=== PATIENT | female | born 1970 | race Two or more races ===

== ENCOUNTER 2020-01-04 09:18 | Inpatient (IN) | payer MEDICAID, OTHER ==
[~2020-01-04] VITALS: Ht 162.6 cm; Wt 94.0 kg
[2020-01-04 10:19] LABS: Basophils # (auto) 0 10 ^3/uL (0-0.2); Basophils % (auto) 0.3 % (0.0-2.0); Eosinophils # (auto) 0 10 ^3/uL (0-0.8); Eosinophils % (auto) 0.3 % (0.0-7.0); Hematocrit 46.8 % (36.0-46.0); Lymphocytes % (auto) 11.8 % (10.0-50.0); Mean Corpuscular Hemoglobin 28.1 pg (28.0-32.0); Mean Corpuscular Hgb Conc. 34.2 g/dL (32.0-36.0); Mean Corpuscular Volume 82.1 fL (80.0-100.0); Monocytes # (auto) 0.7 10 ^3/uL (0-1.3); Monocytes % (auto) 8.5 % (0.0-12.0); Neutrophils % (auto) 79.1 % (37.0-80.0); Platelet Count (auto) 253 10^3/uL (140-450); Red Cell Distribution Width 14.5 % (11.8-14.3); White Blood Cell 8.8 10^3/uL (4.4-10.8)
[2020-01-04 10:21] LABS: Albumin 3.5 g/dL (3.4-5.0); BUN/Creatinine Ratio 8.5; Calcium 8.7 mg/dL (8.5-10.1); Potassium 3.6 mmol/L (3.5-5.1)
[2020-01-04 10:23] LABS: Lactic Acid w/Reflex 4.1 mmol/L (0.4-2.0)
[2020-01-04 10:24] LABS: Bilirubin, Total 0.4 mg/dL (0.2-1.0); Total Protein 7.8 g/dL (6.4-8.2)
[2020-01-04] MEDS ORDERED: ACETAMINOPHEN 325 MG TAB PO ONE (10:30)
[2020-01-04 10:38] LABS: Urine Bacteria MOD /hpf (None Seen); Urine Blood Negative /uL (Negative); Urine Specific Gravity 1.035 (1.001-1.035); Urine WBC 18 /hpf (0 - 5)
[2020-01-04] MEDS ORDERED: LABETALOL HCL 5 MG/ML 4ML SYRINGE IV ONE (12:00)
[2020-01-04] MEDS ORDERED: SODIUM CHLORIDE 0.9% 1,000 ML IVB ONE (12:00)
[2020-01-04] MEDS ORDERED: cefTRIAXone 1GM/50ML D5W 50 ML IV ONE (12:00)
[2020-01-04] MEDS ORDERED: ONDANSETRON HCL 4 MG/2 ML VIAL IV PRN (14:30)
[2020-01-04] MEDS ORDERED: MORPHINE SULF INJ 2 MG/ML SYRINGE 1ML IV PRN ×2 (14:30)
[2020-01-04] MEDS ORDERED: NITROGLYCERIN 0.4 MG SL TAB SL PRN (14:30)
[2020-01-04] MEDS ORDERED: DEXTROSE (50%) 50ML SYRG IV PRN (14:30)
[2020-01-04 15:42] LABS: Cholesterol 217 mg/dL (< 200); HDL Cholesterol 57 mg/dL (40-59); LDL Cholesterol 146 mg/dL (< 100); Triglycerides 186 mg/dL (< 150)
[2020-01-04] MEDS: ACETAMINOPHEN 500 MG TAB PO PRN (15:45)
[2020-01-04] MEDS: SODIUM CHLORIDE 0.9% 1,000 ML IV SCH (15:45)
[2020-01-04] MEDS: ACCU-CHEK COMFORT CURVE STRIP VI SCH ×2 (17:36→23:43)
[2020-01-04] MEDS: InsuLIN REG 1unit/0.01ml Soln (100units/ml) SC SCH ×2 (17:39→23:50)
[2020-01-04] MEDS: HYDROcodone-ACET 5/325MG TAB PO PRN (21:46)
[2020-01-04] MEDS: ATORVASTATIN 20 MG TAB PO SCH (22:26)
[2020-01-04] MEDS: METOPROLOL TARTRATE 25 MG TAB PO SCH (22:26)
[2020-01-05] MEDS: SODIUM CHLORIDE 0.9% 1,000 ML IV SCH (04:05)
[2020-01-05] MEDS: HYDROcodone-ACET 5/325MG TAB PO PRN (04:39)
[2020-01-05 06:00] VITALS: BP 159/97
[2020-01-05] MEDS: ACCU-CHEK COMFORT CURVE STRIP VI SCH ×3 (06:32→22:05)
[2020-01-05] MEDS: InsuLIN REG 1unit/0.01ml Soln (100units/ml) SC SCH ×3 (06:40→22:06)
[2020-01-05 07:20] LABS: Albumin 2.9 g/dL (3.4-5.0); Anion Gap 7 (5-15); BUN/Creatinine Ratio 15.8; Blood Urea Nitrogen 9 mg/dL (7-18); Calcium 7.9 mg/dL (8.5-10.1); Carbon Dioxide 25 mmol/L (21-32); Chloride 100 mmol/L (98-107); GFR African American 144 mL/min; GFR Non-African American 119 mL/min; Glucose 286 mg/dL (74-106); Potassium 3.5 mmol/L (3.5-5.1); Sodium 132 mmol/L (136-145)
[2020-01-05 07:24] LABS: Alanine Aminotransferase 20 U/L (13-56); Alkaline Phosphatase 82 U/L (45-117); Aspartate Aminotransferase 14 U/L (15-37); Bilirubin, Total 0.5 mg/dL (0.2-1.0); Total Protein 6.7 g/dL (6.4-8.2)
[2020-01-05 09:00] VITALS: BP 143/84
[2020-01-05] MEDS: cefTRIAXone 1GM/50ML D5W 50 ML IV SCH (10:14)
[2020-01-05] MEDS: ASPirin-EC 81 mg tab PO SCH (10:15)
[2020-01-05] MEDS: METOPROLOL TARTRATE 25 MG TAB PO SCH ×2 (10:15→22:04)
[2020-01-05] MEDS: FAMOTIDINE 20 MG TAB PO SCH (10:15)
[2020-01-05] MEDS ORDERED: DEXTROSE (50%) 50ML SYRG IV PRN (11:45)
[2020-01-05] MEDS ORDERED: INSULIN LANTUS (GLARGINE) 1 /0.01ml (100units/ml) SC ONE (11:45)
[2020-01-05 13:00] VITALS: BP 135/90
[2020-01-05 17:00] VITALS: BP 154/93
[2020-01-05] MEDS: ACETAMINOPHEN 500 MG TAB PO PRN (17:56)
[2020-01-05] MEDS: metFORMIN HYDROCHLORIDE 500 MG TAB PO SCH (17:56)
[2020-01-05 22:00] VITALS: BP_SYST 151; BP_SYST 163; BP_DIAS 86; BP_DIAS 94
[2020-01-05] MEDS: ATORVASTATIN 20 MG TAB PO SCH (22:04)
[2020-01-05] MEDS: INSULIN LANTUS (GLARGINE) 1 /0.01ml (100units/ml) SC SCH (22:06)
[2020-01-06 05:00] VITALS: BP 144/87
[2020-01-06] MEDS: ACCU-CHEK COMFORT CURVE STRIP VI SCH ×4 (06:02→21:57)
[2020-01-06] MEDS: InsuLIN REG 1unit/0.01ml Soln (100units/ml) SC SCH ×4 (06:05→21:56)
[2020-01-06] MEDS: INSULIN LANTUS (GLARGINE) 1 /0.01ml (100units/ml) SC SCH ×2 (06:05→21:57)
[2020-01-06] MEDS: metFORMIN HYDROCHLORIDE 500 MG TAB PO SCH ×2 (08:00→17:15)
[2020-01-06] MEDS ORDERED: ADENOSINE 80 MG in GIVE UN-DILUTED 0 ML IV STA (08:19)
[2020-01-06 08:34] VITALS: BP 155/95
[2020-01-06] MEDS ORDERED: LISINOPRIL 5 MG TAB PO SCH (10:00)
[2020-01-06 13:00] VITALS: BP 152/91
[2020-01-06] MEDS: cefTRIAXone 1GM/50ML D5W 50 ML IV SCH (13:20)
[2020-01-06] MEDS: ASPirin-EC 81 mg tab PO SCH (13:20)
[2020-01-06] MEDS: FAMOTIDINE 20 MG TAB PO SCH (13:21)
[2020-01-06] MEDS: METOPROLOL TARTRATE 25 MG TAB PO SCH ×2 (13:22→22:09)
[2020-01-06] MEDS: HYDROcodone-ACET 5/325MG TAB PO PRN (14:13)
[2020-01-06] MEDS ORDERED: ATOR20TA50 PO (14:55)
[2020-01-06] MEDS ORDERED: CIPR-173 PO (14:55)
[2020-01-06] MEDS ORDERED: ONDA-144 PO (14:55)
[2020-01-06] MEDS ORDERED: INSLANTI SC (14:55)
[2020-01-06] MEDS ORDERED: LISI-275 PO (14:55)
[2020-01-06] MEDS ORDERED: METO-169 PO (14:56)
[2020-01-06 17:24] VITALS: BP 147/89
[2020-01-06 22:00] VITALS: BP 144/84
[2020-01-06] MEDS: ATORVASTATIN 20 MG TAB PO SCH (22:09)
[2020-01-07 05:00] VITALS: BP 121/90
[2020-01-07] MEDS: ACCU-CHEK COMFORT CURVE STRIP VI SCH ×2 (06:44→11:30)
[2020-01-07] MEDS: INSULIN LANTUS (GLARGINE) 1 /0.01ml (100units/ml) SC SCH (06:44)
[2020-01-07] MEDS: InsuLIN REG 1unit/0.01ml Soln (100units/ml) SC SCH ×2 (06:45→11:30)
[2020-01-07] MEDS: metFORMIN HYDROCHLORIDE 500 MG TAB PO SCH (08:27)
[2020-01-07 08:32] VITALS: BP 134/94
[2020-01-07] MEDS ORDERED: LISINOPRIL 5 MG TAB PO SCH (10:00)
[2020-01-07] MEDS: cefTRIAXone 1GM/50ML D5W 50 ML IV SCH (10:04)
[2020-01-07] MEDS: FAMOTIDINE 20 MG TAB PO SCH (10:24)
[2020-01-07] MEDS: METOPROLOL TARTRATE 25 MG TAB PO SCH (10:25)
[2020-01-07] MEDS: ASPirin-EC 81 mg tab PO SCH (10:26)
[2020-01-07 12:47] VITALS: BP 134/94
[2020-01-07 12:49] VITALS: BP 149/97
== END 2020-01-07 13:30 | disposition home or self-care (01) | DRG 203 ==
LOC: ER 09:18 → TELE 09:19 → TELE-EAST 18:33 → TELE-WESTW 01-05 11:01 → WEST WING 01-05 12:20
PROVIDERS: ADMIT Nurse Practitioner Acute Care; ATTEND Internal Medicine
DX: R07.89 Other chest pain (principal); N39.0 Urinary tract infection, site not specified; I10 Essential (primary) hypertension; E11.65 Type 2 diabetes mellitus with hyperglycemia; E87.1 Hypo-osmolality and hyponatremia; E44.0 Moderate protein-calorie malnutrition; Z20.828 Contact with and (suspected) exposure to other viral communicable diseases; E66.01 Morbid (severe) obesity due to excess calories; E03.9 Hypothyroidism, unspecified; E78.5 Hyperlipidemia, unspecified; Z71.3 Dietary counseling and surveillance; Z79.84 Long term (current) use of oral hypoglycemic drugs; Z86.73 Personal history of transient ischemic attack (TIA), and cerebral infarction without residual deficits; Z79.899 Other long term (current) drug therapy; Z68.26 Body mass index [BMI] 26.0-26.9, adult
CPT/HCPCS: 36415; 71045; 78452; 80053; 80061; 81001; 82962; 83036; 83605; 84484; 85025; 87040; 87086; 87426; 93005; 93306; 95819; 96361; 96365; 96375; G0378; J0153; J0696; J1815; J2405; J3490

== ENCOUNTER 2020-07-09 15:13 | Emergency (ER) | payer OTHER, MEDICAID ==
[~2020-07-09] VITALS: Ht 154.9 cm; Wt 90.7 kg
[~2020-07-09 15:13] MED LIST: ATOR20TA50 PO; CIPR-173 PO; INSLANTI SC; LISI-275 PO; METO-169 PO; ONDA-144 PO
[2020-07-09] MEDS ORDERED: PANTOPRAZOLE 40 MG/10 ML VIAL INJ IV STA (15:29)
[2020-07-09] MEDS ORDERED: MORPHINE SULFATE 4 MG/ML SYR/VIAL IV ONE (15:30)
[2020-07-09] MEDS ORDERED: ONDANSETRON HCL 4 MG/2 ML VIAL IV ONE (15:30)
[2020-07-09 19:10] LABS: Basophils # (auto) 0.1 10 ^3/uL (0-0.2); Basophils % (auto) 0.6 % (0.0-2.0); Eosinophils # (auto) 0.1 10 ^3/uL (0-0.8); Eosinophils % (auto) 1.5 % (0.0-7.0); Hematocrit 46.2 % (36.0-46.0); Hemoglobin 15.7 g/dL (12.2-16.2); Lymphocytes # (auto) 2.3 10 ^3/uL (0.4-5.4); Lymphocytes % (auto) 23.7 % (10.0-50.0); Mean Corpuscular Hemoglobin 28.6 pg (28.0-32.0); Monocytes # (auto) 0.9 10 ^3/uL (0-1.3); Neutrophils # (auto) 6.4 10 ^3/uL (1.6-8.6); Neutrophils % (auto) 65.2 % (37.0-80.0); Nucleated Red Blood Cells % 0.1 %; Platelet Count (auto) 309 10^3/uL (140-450); Red Cell Distribution Width 13.7 % (11.8-14.3); White Blood Cell 9.9 10^3/uL (4.4-10.8)
[2020-07-09 19:12] LABS: Urine Bacteria FEW /hpf (None Seen); Urine Blood 1+ /uL (Negative); Urine Specific Gravity 1.035 (1.001-1.035); Urine WBC 25 /hpf (0 - 5)
[2020-07-09 19:38] LABS: Albumin 3.4 g/dL (3.4-5.0); BUN/Creatinine Ratio 21.1; Calcium 9.2 mg/dL (8.5-10.1); Potassium 4.3 mmol/L (3.5-5.1)
[2020-07-09 19:40] LABS: Bilirubin, Total 0.4 mg/dL (0.2-1.0)
[2020-07-09] MEDS ORDERED: cefTRIAXone 1GM/50ML D5W 50 ML IV ONE (19:45)
[2020-07-09 20:00] VITALS: BP 132/76
== END 2020-07-09 20:58 | disposition home or self-care (01) ==
LOC: ER 15:13
DX: N39.0 Urinary tract infection, site not specified (principal); E11.9 Type 2 diabetes mellitus without complications; I10 Essential (primary) hypertension; Z79.899 Other long term (current) drug therapy; Z86.73 Personal history of transient ischemic attack (TIA), and cerebral infarction without residual deficits; Z79.4 Long term (current) use of insulin
CPT/HCPCS: 36415; 74176; 80053; 81001; 83690; 85025; 93005; 96365; 96375; 99285; C9113; J0696; J2270; J2405

== ENCOUNTER 2022-10-30 19:50 | Emergency (ER) | payer MEDICAID, OTHER ==
[~2022-10-30] VITALS: Ht 154.9 cm; Wt 91.8 kg
[~2022-10-30 19:50] MED LIST changes: -METO-169 PO; +METO-289 PO
[2022-10-30] MEDS ORDERED: HYDROmorphone HCL 2 MG/ML VL/or syr IM ONE (20:15)
[2022-10-30] MEDS ORDERED: cloNIDine HCL 0.1 MG TAB PO ONE (20:30)
[2022-10-30 21:01] LABS: Urine Bacteria NONE SEEN /hpf (None Seen); Urine Blood Negative /uL (Negative); Urine Budding Yeast MANY /hpf (None Seen); Urine Specific Gravity 1.015 (1.001-1.035); Urine WBC 11 /hpf (0 - 5)
[2022-10-30 21:40] VITALS: TEMP 98.7
[2022-10-30 22:11] VITALS: BP 145/86; PULSE 81; RESP 18; O2SAT 97
[2022-10-30] MEDS ORDERED: IBUP-1455 PO (23:40)
[2022-10-30] MEDS ORDERED: NITR-87 PO (23:40)
[2022-10-30] MEDS ORDERED: CLON0.2T PO (23:45)
[2022-10-31] MEDS ORDERED: ACET500T58 PO (00:05)
== END 2022-10-30 23:59 | disposition home or self-care (01) ==
LOC: ER 19:50
DX: M54.16 Radiculopathy, lumbar region (principal); M79.605 Pain in left leg; N39.0 Urinary tract infection, site not specified; I10 Essential (primary) hypertension; E11.9 Type 2 diabetes mellitus without complications; I48.91 Unspecified atrial fibrillation; Z86.73 Personal history of transient ischemic attack (TIA), and cerebral infarction without residual deficits; Z79.4 Long term (current) use of insulin; Z79.2 Long term (current) use of antibiotics; Z79.899 Other long term (current) drug therapy
CPT/HCPCS: 81001; 93971; 96372; 99285; J1170